=== PATIENT | female | born 1945 | race Caucasian/White ===

== ENCOUNTER 2020-02-16 13:42 | Outpatient (CLI) | payer MEDICARE ==
--- NOTE | 2020-02-16 21:30 | RAD ---
LEFT SHOULDER THREE VIEWS: 02/16/20 No acute fracture was seen. Large osteophytes are seen around the humeral head, the largest being jus t inferior to the glenoid. The glenoid fossa itself seems somewhat irregular. The AC joint shows no widening or off-set. No fracture or dislocation was seen. IMPRESSION: Degenerative changes but no acute findings. POS: HOME
== END 2020-02-16 13:43 | disposition home or self-care (01) ==
LOC: BURRAD 13:42
PROVIDERS: ATTEND Family Medicine
DX: M25.512 Pain in left shoulder (principal); M19.012 Primary osteoarthritis, left shoulder

== ENCOUNTER 2020-11-10 20:11 | Emergency (ER) | payer MEDICARE ==
[2020-11-10] MEDS ORDERED: Bisacodyl 10 MG SUPP ONE (20:45)
[2020-11-10] MEDS ORDERED: Magnesium Citrate 300 ML BOT ONE (21:17)
== END 2020-11-10 21:24 | disposition home or self-care (01) ==
LOC: BURERS 20:11
DX: K59.00 Constipation, unspecified (principal); Z79.899 Other long term (current) drug therapy; I10 Essential (primary) hypertension; F03.90 Unspecified dementia, unspecified severity, without behavioral disturbance, psychotic disturbance, mood disturbance, and anxiety; Z87.891 Personal history of nicotine dependence
CPT/HCPCS: 82274; 99283